=== PATIENT | female | born 1980 | race Caucasian/White ===

== ENCOUNTER 2023-08-08 16:04 | Emergency (ER) | payer MEDICAID ==
[~2023-08-08] VITALS: Ht 167.6 cm; Wt 71.7 kg
[~2023-08-08 16:04] MED LIST: ACET-2634 PO; AMOX-426 PO; HYDR-3917 PO; IBUP-1969 PO; ONDA-8 TL
[2023-08-08 16:12] VITALS: BP_SYST 145; PULSE 86; RESP 18; TEMP 98.3; O2SAT 98
[2023-08-08 17:19] LABS: BILIRUBIN,URINE NEGATIVE (NEGATIVE); BLOOD, URINE NEGATIVE (NEGATIVE); CLARITY/URINE SL CLOUDY (CLEAR); COLOR,URINE YELLOW (YELLOW); GLUCOSE,URINE NEGATIVE (NEGATIVE); KETONES,URINE NEGATIVE (NEGATIVE); LEUKOCYTE ESTERASE ,URINE TRACE (NEGATIVE); NITRITE, URINE NEGATIVE (NEGATIVE); PROTEIN URINE NEGATIVE (NEGATIVE); UROBILINOGEN,URINE 0.2 (0.2-1.0)
[2023-08-08 17:27] LABS: BASOPHILS % (AUTO) 0.2 % (0.0-2.0); EOSINOPHILS # (AUTO) 0.1 K/uL (0.0-0.4); HEMATOCRIT 39.3 % (36-48); LYMPHOCYTES % (AUTO) 28.3 % (20.5-51.5); MEAN CORPUSCULAR HEMOGLOBIN 30 pg (27-31); MEAN CORPUSCULAR HGB CONC 33 % (32-36); MEAN CORPUSCULAR VOLUME 91 fL (79.0-98.0); MONOCYTES # (AUTO) 0.5 K/uL (0.0-1.0); NEUTROPHILS # (AUTO) 4.5 K/uL (1.8-7.7); NEUTROPHILS % (AUTO) 63.5 % (40.0-70.0); PLATELET COUNT (AUTO) 251 K/uL (130-430); RED BLOOD CELL COUNT(AUTO) 4.31 MIL/uL (4.2-6.2); RED CELL DISTRIBUTION WIDTH 12.9 % (9.0-15.0)
[2023-08-08 17:35] LABS: CALCIUM 8.4 mg/dL (8.4-11.0); CREATININE 0.73 mg/dL (0.55-1.30); POTASSIUM 4.6 mmol/L (3.5-5.1)
[2023-08-08 17:44] LABS: SERUM HCG (QUALITATIVE) NEGATIVE (NEGATIVE)
[2023-08-08 17:49] LABS: RBC,URINE 0-3 /HPF (0-3)
[2023-08-08 17:50] LABS: BACTERIA,URINE MODERATE /HPF (None Seen); CALCIUM OXALATE CRYSTALS,UR 0-10 /HPF (None Seen); MUCUS,URINE 2+ /LPF (None Seen); WBC,URINE 20-50 /HPF (0-3)
[2023-08-08 17:56] LABS: ALBUMIN 3.8 g/dL (3.4-4.8); TOTAL BILIRUBIN 0.5 mg/dL (0.0-1.0); TOTAL PROTEIN, SERUM 7.2 g/dL (6.4-8.3)
[2023-08-08] MEDS ORDERED: DIF100 PO (18:10)
[2023-08-08] MEDS ORDERED: NITR-85 PO (18:10)
[2023-08-08] MEDS ORDERED: NITROFURANTOIN MONOHYD/M-CRYST 100 MG CAPSULE (MacroBID) PO ONE (18:15)
[2023-08-08] MEDS ORDERED: PHEN-726 PO (18:15)
[2023-08-08] MEDS ORDERED: FLUCONAZOLE 100 MG TABLET (DIFLUCAN) PO ONE (18:15)
[2023-08-08 18:28] VITALS: BP_SYST 145; PULSE 86; RESP 18; TEMP 98.3; O2SAT 98
== END 2023-08-08 18:28 | disposition home or self-care (01) ==
LOC: SED 16:04
DX: N39.0 Urinary tract infection, site not specified (principal); R10.30 Lower abdominal pain, unspecified; R30.0 Dysuria; N89.8 Other specified noninflammatory disorders of vagina; Z79.899 Other long term (current) drug therapy
CPT/HCPCS: 36415; 80053; 81000; 81025; 83605; 84703; 85025; 87086; 99283